=== PATIENT | male | born 1990 | race Two or more races ===

== ENCOUNTER 2019-10-26 07:17 | Emergency (ER) | payer OTHER ==
[~2019-10-26] VITALS: Ht 170.2 cm; Wt 63.6 kg
[2019-10-26 07:21] VITALS: BP 100/66
--- NOTE | 2019-10-26 08:20 | NUR ---
Removed 3 arline for the top of pt's head. Pt tolerated well.
== END 2019-10-26 08:20 | disposition home or self-care (01) ==
LOC: ER 07:17
DX: S01.01XD Laceration without foreign body of scalp, subsequent encounter (principal); W20.8XXD Other cause of strike by thrown, projected or falling object, subsequent encounter
CPT/HCPCS: 99281

== ENCOUNTER 2020-10-24 08:22 | Emergency (ER) | payer OTHER ==
[~2020-10-24] VITALS: Ht 170.2 cm; Wt 63.6 kg
[2020-10-24 08:25] VITALS: BP 124/85
--- NOTE | 2020-10-24 09:18 | NUR ---
lac repair setup done at bedside.
[2020-10-24] MEDS ORDERED: LIDOcaine 1% W/epiNEPHrine 1:200,000 10ml vial IJ ONE (09:20)
[2020-10-24] MEDS ORDERED: LIDOcaine 1% w/epiNEPHrine 1:200,000 30ml vial IJ ONE (09:30)
[2020-10-24] MEDS ORDERED: AMOX-422 PO (10:04)
== END 2020-10-24 10:31 | disposition home or self-care (01) ==
LOC: ER 08:23
DX: S61.212A Laceration without foreign body of right middle finger without damage to nail, initial encounter (principal); R50.9 Fever, unspecified; Z79.2 Long term (current) use of antibiotics; W45.8XXA Other foreign body or object entering through skin, initial encounter; Y93.89 Activity, other specified; Y92.89 Other specified places as the place of occurrence of the external cause; Y99.8 Other external cause status
CPT/HCPCS: 12002; 73140; 99283